=== PATIENT | male | born 1995 | race Caucasian/White ===

== ENCOUNTER 2016-11-20 20:02 | Emergency (ER) | payer BC ==
[~2016-11-20] VITALS: Ht 180.3 cm; Wt 91.8 kg
[2016-11-20 20:07] VITALS: TEMP 36.8; Ht 180.3 cm; Wt 91.8 kg
[2016-11-20] MEDS ORDERED: XYLOCAINE 1%/SOD BICARB 20 ML VIAL INFIL STA (20:32)
--- NOTE | 2016-11-20 20:51 | DIAGNOSTIC IMAGING REPORT ---
HEAD CT NONCONTRAST CT DOSE: 776.86 mGycm HISTORY: Trauma Trauma to bridge of nose/forehead, headache, dizzy TECHNIQUE: Multiaxial CT images of the head were performed without the use of intravenous contrast. Comparison: None. Findings: The paranasal sinuses and mastoid air cells are clear. The calvarium and skull base are intact. The ventricles and sulci are within normal limits. There is no mass, hematoma, midline shift, or acute infarct. Impression: No acute intracranial abnormality. Electronically signed by: Krunal Branch M.D. 11/20/2016 8:49 PM Dictated Date/Time: 11/20/2016 8:48 PM
--- NOTE | 2016-11-20 21:06 | DIAGNOSTIC IMAGING REPORT ---
NASAL BONES MIN 3 VIEWS CLINICAL HISTORY: Bridge of nose pain, trauma pain COMPARISON STUDY: None FINDINGS: Fracture nasal bones. Maxillary spine is intact. Air-fluid level within the right maxillary sinus. CT of the maxillofacial region is recommended. IMPRESSION: Fracture nasal bones. Air-fluid level within the right maxillary sinus. CT study of the maxillofacial region is suggested. Electronically signed by: Krunal Branch M.D. 11/20/2016 9:03 PM Dictated Date/Time: 11/20/2016 9:02 PM
--- NOTE | 2016-11-20 21:19 | EMERGENCY ROOM VISIT NOTE ---
ED Visit Note First contact with patient: 20:20 Chief Complaint: "Cut, mild headache" History of Present Illness: This patient is a 21-year-old male who presents to the Emergency Department via private vehicle for evaluation of their forehead laceration. Patient sustained the laceration earlier today, around 5:15 PM while participating in basketball. He was accidentally struck by another individuals elbow while going up for a rebound. They report a minimal amount of bleeding initially. They report no loss of consciousness. They deny any persistent headache, visual disturbance, nausea, vomiting, or neck pain. Patient rates his current discomfort as a 3/10. Patient's Tetanus status is currently up-to-date. Medications: None Allergies: No known allergies PMH: [place] teeth extraction, skin problems SHx: Patient is a [employer] student ROS: All pertinent positive and negative review of systems are appropriately documented in the History of Present Illness. Physical Exam: VITAL SIGNS - Vital signs and nursing notes were reviewed. GENERAL -21-year-old male appearing his stated age. Communicates well with provider and answers questions appropriately. SKIN - There is a 1.5 cm somewhat superficial laceration noted superior to inferior between the eyebrows. The edges do not gape apart with traction. There is no active bleeding appreciated. No deep structures including vessels, musculature, or bony structures are appreciated. HEAD - Normocephalic. No Woodward's Sign or Raccoon's Eyes. No depressed skull fractures palpable. EYES - PERRL with EOMI bilaterally. Without subconjunctival hemorrhage. Palpebral conjunctiva pink and moist with no injection. EARS - No deformities of external structures noted on gross examination bilaterally. No hemotympanum present. No tympanic perforation noted. NOSE - Midline and without cyanosis. No epistaxis or clear watery discharge noted. Septum midline without deviation. No septal hematoma noted. No overlying ecchymosis noted. MOUTH/OROPHARYNX - Without perioral cyanosis. Tongue midline with equal elevation of palate bilaterally. No blood noted in the oropharynx. No tonsillar hypertrophy, erythema, or exudates noted. No dental fractures noted. NECK - FROM assessed. No tenderness to palpation over the cervical spinous processes. No cervical paraspinal muscle tenderness noted. NEUROLOGIC - Cranial nerves II through XII grossly intact. Sensory intact to light touch throughout. PSYCH - Pt is very pleasant and interacts well with examiner. IMAGING: MAXILLOFACIAL CT CT DOSE: 668.34 mGy.cm HISTORY: Trauma Nasal fx on radiograph, further assessment via CT indicated TECHNIQUE: Multiaxial CT images of the maxillofacial region were performed and reformatted in the coronal plane without the use of contrast. COMPARISON: NaSal series M.DJustus FINDINGS: Fractures of the mid anterior nasal bones. Minimal displacement. Air-fluid level within the right maxillary sinus without evidence for fracture. Appears be on the basis of sinusitis. Mucous tension cyst base left maxillary sinus. The orbital margins are intact. Globes are symmetric. Zygomatic arches are intact. IMPRESSION: 1. Slightly angled fracture nasal bones. 2. Acute right maxillary sinusitis apparently accounting for the air-fluid level on plain film. No additional fracture is identified. Electronically signed by: Krunal Branch M.D. 11/20/2016 9:39 PM Dictated Date/Time: 11/20/2016 9:[address]AST CT DOSE: 776.86 mGycm HISTORY: Trauma Trauma to bridge of nose/forehead, headache, dizzy TECHNIQUE: Multiaxial CT images of the head were performed without the use of intravenous contrast. Comparison: None. Findings: The paranasal sinuses and mastoid air cells are clear. The calvarium and skull base are intact. The ventricles and sulci are within normal limits. There is no mass, hematoma, midline shift, or acute infarct. Impression: No acute intracranial abnormality. Electronically signed by: Krunal Branch M.D. 11/20/2016 8:49 PM Dictated Date/Time: 11/20/2016 8:48 PM NASAL BONES MIN 3 VIEWS CLINICAL HISTORY: Bridge of nose pain, trauma pain COMPARISON STUDY: None FINDINGS: Fracture nasal bones. Maxillary spine is intact. Air-fluid level within the right maxillary sinus. CT of the maxillofacial region is recommended. IMPRESSION: Fracture nasal bones. Air-fluid level within the right maxillary sinus. CT study of the maxillofacial region is suggested. Electronically signed by: Krunal Branch M.D. 11/20/2016 9:03 PM Dictated Date/Time: 11/20/2016 9:02 PM ED Course: Patient was seen and evaluated by myself. Patient had no focal neurological deficits. Patient's exam is otherwise unremarkable. He was referred here by [facility] for potential CT scan and laceration evaluation. Patient reports initially a headache, which is slowly subsiding but denies any visual disturbances, nausea, vomiting, or over-lethargy. Benefits versus risk of obtaining CT scan was discussed with the patient. He did have tenderness over the superior bridge of the nose. Decision was made to obtain a CT scan of the head without contrast as well as plain radiographs of the nose. Results as above. Head CT was normal, however the nasal bone radiographs showed fracture and recommended a follow-up CT. CT scan of the face was obtained. This reveals a nasal bone fracture without evidence of orbital floor fracture. He has no evidence of orbital floor fracture on exam. Risks and benefits of performing primary wound closure versus no repair were discussed with the patient who verbalizes understanding. Verbal consent was obtained prior to performing the procedure. The wound was cleansed with normal saline, and after benefits versus risk of closure with sutures versus Dermabond, the decision was made to utilize Dermabond with the wound edges being well approximated. Patient tolerated the procedure well. No complications were met. He was given Augmentin prescription for the potential sinusitis on CT scan. He was given the number of of an ENT surgeon he is to call first thing tomorrow morning to schedule follow-up regarding his nasal bone fractures. Patient educated on worrisome symptoms for return visit to the Emergency Department. Patient discharged to home in good condition. In the evaluation and treatment of this patient, the following differential diagnoses were considered: Concussion, Contrecoup Injury, Brain Tumor, Depression, Encephalitis, Hypothyroidism, Meningitis, CVA, TIA, Migraine, Cluster Headache, Intracranial Abnormality, Intracranial Hemorrhage, orbital floor fracture, nasal bone fracture, Subdural Hematoma, Subarachnoid Hemorrhage , Hydrocephalus, among others. Current/Historical Medications Scheduled Amoxicillin & Pot Clavulanate (Augmentin 875-125 mg), 1 TAB PO BID Allergies Coded Allergies: No Known Allergies (Unverified , 11/20/16) Vital Signs Date Time Temp Pulse Resp B/P Pulse Ox O2 Delivery O2 Flow Rate FiO2 11/20/16 22:25 78 18 145/85 99 Room Air 11/20/16 20:10 18 95 11/20/16 20:07 36.8 76 16 156/84 95 Room Air Medications Administered Medications (Trade) Dose Ordered Sig/Danie Route Start Time Stop Time Status Last Admin Dose Admin Amoxicillin/ Clavulanate Potassium (Augmentin 875MG Home Pack) 1 homepack UD STAT PO 11/20/16 22:23 11/20/16 22:25 DC 11/20/16 22:31 1 HOMEPACK Departure Information Impression Primary Impression: Closed head injury Additional Impressions: Scalp laceration Nasal bone fracture Sinusitis, acute maxillary Dispostion Home / Self-Care Condition GOOD Prescriptions Amoxicillin & Pot Clavulanate (Augmentin 875-125 mg) 1 Tab Tab 1 TAB PO BID for 9 Days, #18 TAB Prov: Cheko Adams PA-C 11/20/16 Referrals No Doctor, Assigned (PCP) Giancarlo Early D.O. Patient Instructions [facility] Additional Instructions LACERATION: You have received dermabond sutures on your forehead. This is dissolvable. Look for signs of infection of the wound including: increased pain, swelling, foul discharge, streaking, or increased temperature. If any of these are noticed you should return to the Emergency Department for further assessment and treatment. As with any laceration you may have received nerve damage to the surrounding tissues. This damage may or may not be permanent. You should keep the area covered with sunscreen for the first 6 months to 1 year when at risk for exposure to help minimize scarring. You can also use scar reducing creams or Vitamin E oil to help minimize scarring. For pain control, you can use the following dgkt-aqn-[id number] medicines (if >12 yo): - Regular strength (325mg/tab) Tylenol (acetaminophen) 2 tabs every 4-6 hours as needed. Do not exceed 12 tablets in a 24 hour period. Avoid taking more than 4 grams (4000 mg) of Tylenol per day. This includes any other sources of acetaminophen you may take on a regular basis. - Regular strength (200 mg/tab) Advil (ibuprofen) 1-2 tabs every 4-6 hours as needed. Do not exceed a dose of 3200 mg per day. Return to the emergency department if your symptoms worsen despite treatment course outlined above. NOSE: You were seen in the emergency department for a fracture of your nasal bone. You've been prescribed Augmentin to be taken one tablet twice daily for 10 days. You were given your first dose here as well as a home pack since your pharmacy is closed. The remainder was sent to your pharmacy. This is to treat sinusitis and to help prevent infection from the fracture. You may use [id number]-[id number] Tylenol and ibuprofen according to the package insert do not exceed the directions on the package. You should purchase [id number] Zyrtec. Please purchase this as soon as possible. Please take this as directed on the bottle for 10 days. You may also purchase an dori-vuq-lozoaky decongestant to help with any nasal congestion or sinus congestion. Please do not blow your nose for the next 30 days. Open your mouth if you have to sneeze. Please elevate the head of your bed when sleeping for the next 5 days. please do not lie completely flat. Please do not sneeze for the next 30 days as well as you are able. Open your mouth if you have to sneeze. Please follow-up with the ear nose throat surgeon, Dr. Early. Please call their office and state that you have a nasal bone fracture and were seen in the emergency department. He was the doctor on-call during the night here in the hospital. If the eye pain would increase or if you develop increased pressure behind the eye or any vision changes (especially double vision) please return to the emergency Department immediately. Please also follow up with your family doctor for recheck in the next week. Please do not engage in any sports until evaluated by the doctors above. Please return to the emergency department with any new/concerning symptoms. Problem Qualifiers
--- NOTE | 2016-11-20 21:41 | DIAGNOSTIC IMAGING REPORT ---
MAXILLOFACIAL CT CT DOSE: 668.34 mGy.cm HISTORY: Trauma Nasal fx on radiograph, further assessment via CT indicated TECHNIQUE: Multiaxial CT images of the maxillofacial region were performed and reformatted in the coronal plane without the use of contrast. COMPARISON: Gonsalo young M.D. FINDINGS: Fractures of the mid anterior nasal bones. Minimal displacement. Air-fluid level within the right maxillary sinus without evidence for fracture. Appears be on the basis of sinusitis. Mucous tension cyst base left maxillary sinus. The orbital margins are intact. Globes are symmetric. Zygomatic arches are intact. IMPRESSION: 1. Slightly angled fracture nasal bones. 2. Acute right maxillary sinusitis apparently accounting for the air-fluid level on plain film. No additional fracture is identified. Electronically signed by: Krunal Branch M.D. 11/20/2016 9:39 PM Dictated Date/Time: 11/20/2016 9:35 PM
[2016-11-20] MEDS ORDERED: AMOX875T PO (22:21)
[2016-11-20] MEDS ORDERED: AMOXICIL/CLAVU 875MG HOME PACK PO STA (22:23)
[2016-11-20 22:25] VITALS: BP 145/85; PULSE 78; O2SAT 99
== END 2016-11-20 22:40 | disposition home or self-care (01) ==
LOC: C.EDB 20:05 → C.EDD 22:40
DX: S01.81XA Laceration without foreign body of other part of head, initial encounter (principal); S02.2XXA Fracture of nasal bones, initial encounter for closed fracture; J01.00 Acute maxillary sinusitis, unspecified; W50.0XXA Accidental hit or strike by another person, initial encounter; Y93.67 Activity, basketball; Y92.310 Basketball court as the place of occurrence of the external cause